=== PATIENT | female | born 2000 | race Two or more races ===

== ENCOUNTER 2018-07-21 17:56 | Emergency (ER) | payer MEDICAID ==
[~2018-07-21] VITALS: Ht 165.1 cm; Wt 72.6 kg
[~2018-07-21 17:56] MED LIST: IBUP800T24 PO
[2018-07-21 18:05] VITALS: BP 126/82
[2018-07-21] MEDS ORDERED: IBUPROFEN 600 MG TAB PO ONE (18:15)
[2018-07-21] MEDS ORDERED: methylPREDNISolone SOD SUCC 125 MG/2 ML VL IV ONE (20:45)
[2018-07-21] MEDS ORDERED: cefTRIAXone 1GM/10ml IVPUSH 10 ML IV ONE (20:45)
[2018-07-21] MEDS ORDERED: cefTRIAXone SOD 1,000 MG VL ONE (20:53)
[2018-07-21] MEDS ORDERED: ACETAMINOPHEN/CODEINE#3 (300/30mg) TAB PO ONE (21:00)
== END 2018-07-21 21:48 | disposition home or self-care (01) ==
LOC: ER 17:56
DX: J03.90 Acute tonsillitis, unspecified (principal); Z91.010 Allergy to peanuts
CPT/HCPCS: 96374; 96375; 99284; J0696; J2930

== ENCOUNTER 2018-11-15 15:37 | Emergency (ER) | payer MEDICAID ==
[~2018-11-15] VITALS: Ht 165.1 cm; Wt 72.6 kg
[2018-11-15 17:35] VITALS: BP 110/76
[2018-11-15] MEDS ORDERED: cefTRIAXone SOD 1,000 MG VL IM ONE (17:45)
== END 2018-11-15 18:18 | disposition home or self-care (01) ==
LOC: ER 15:37
DX: J03.90 Acute tonsillitis, unspecified (principal); Z79.899 Other long term (current) drug therapy
CPT/HCPCS: 96372; 99283; J0696

== ENCOUNTER 2018-12-04 01:41 | Emergency (ER) | payer MEDICAID ==
[~2018-12-04] VITALS: Ht 165.1 cm; Wt 72.6 kg
[2018-12-04 02:07] VITALS: BP 109/85
[2018-12-04 02:40] LABS: Urine Bacteria FEW /hpf (None Seen); Urine Blood 1+ /uL (Negative); Urine Mucus FEW (None Seen); Urine Specific Gravity 1.027 (1.001-1.035); Urine WBC 9 /hpf (0 - 5)
== END 2018-12-04 05:10 | disposition home or self-care (01) ==
LOC: ER 01:45
DX: J03.90 Acute tonsillitis, unspecified (principal); N39.0 Urinary tract infection, site not specified
CPT/HCPCS: 81001; 81025